=== PATIENT | male | born 1980 | race Caucasian/White ===

== ENCOUNTER 2016-10-30 20:20 | Emergency (ER) | payer OTHER ==
[~2016-10-30] VITALS: Ht 177.8 cm; Wt 106.6 kg
[2016-10-30] MEDS ORDERED: ALBUTEROL2.5 MG/3 M INH/SOL ×2 (21:34→23:28)
[2016-10-30] MEDS ORDERED: PROAIR HFA8.5 GM INH (21:34)
[2016-10-30] MEDS ORDERED: AMOX-CLAV 875-1 EACH PO (21:35)
--- NOTE | 2016-10-30 21:38 | ED DYSPNEA/ASTHMA COMPLAINT ---
History of Present Illness General Chief Complaint: General Adult Stated Complaint: DX PNEUMONIA "GETTING WORSE" Source: patient Exam Limitations: no limitations Vital Signs & Intake/Output Vital Signs & Intake/Output Vital Signs Date Time Temp Pulse Resp B/P Pulse O2 O2 Flow FiO2 Ox Delivery Rate 10/30 2142 92 10/30 2022 96.2 102 18 157/101 95 Room Air Allergies Coded Allergies: No Known Allergies (10/30/16) Reconcile Medications Albuterol Sulfate 2.5 MG/3 ML (0.083 %) VIAL.NEB 1 Vial INH/KAREN PRN WHEEZE ( Reported) Albuterol Sulfate (Proair Hfa) 90 MCG HFA.AER.AD 2 PUF INH Q4-6 PRN PRN ASTHMA (Reported) Albuterol Sulfate 2.5 MG/3 ML (0.083 %) VIAL.NEB 1 Vial INH/KAREN Q4P PRN WHEEZING Amoxicillin/Clavulanate Potass (Amox-Clav 875-125 MG Tablet) 875 MG-125 MG TABLET 1 TAB PO BID ANTIBIOTIC (Reported) Azithromycin (Zithromax) 250 MG TABLET 1 DP PO AD BRONBCHITIS 2 the first day followed by 1 for days 2-5 Prednisone 10 MG TABLET 1 TAB PO DAILY BRONCHITIS TAKE 4 TABS FOR 3 DAYS THEN TAKE 3 TABS FOR 3 DAYS THEN TAKE 2 TABS FOR 3 DAYS THEN TAKE 1 TAB FOR 3 DAYS Triage Note: PT TO [facility] WITH C/O NONPRODUCTIVE COUGH, SOB, WHEEZING x1WEEK. PT WAS DIAGNOSED WITH PNEUMONIA ON SUNDAY AND WAS ON AMOXICILLINE SINCE. SYMPTOMS GETTING WORSE. +EXPIRATORY WHEEZING ON AUSCULTATION. PT AFEBRLIE. O2SAT 95% ON RA. VSS. HX OF PNEUMONIA IN AUGUST. Triage Nurses Notes Reviewed? yes HPI: Patient was seen by a walk-in center 5 days ago and was put on amoxicillin for pneumonia. Patient states his symptoms are worsening. Positive chills but no fever. Positive cough and wheezing. Patient denies any orthopnea. There is no chest pain or chest tightness. Positive anorexia. Patient states that he feels that he needs to cough but is unable to bring anything up. The patient presents for reevaluation. Past History Travel History Traveled to [place] past 21 day No Medical History Any Pertinent Medical History? see below for history Respiratory: pneumonia Surgical History Surgical History: non-contributory Psychosocial History Tobacco Use: Never used ETOH Use: occasional use Illicit Drug Use: denies illicit drug use Family History Hx Contributory? No Review of Systems Review of Systems Constitutional: Reports: see HPI, chills. EENTM: Reports: no symptoms. Respiratory: Reports: see HPI, cough, short of breath, wheezing. Cardiovascular: Reports: no symptoms. GI: Reports: no symptoms. Genitourinary: Reports: no symptoms. Musculoskeletal: Reports: no symptoms. Skin: Reports: no symptoms. Neurological/Psychological: Reports: no symptoms. Hematologic/Endocrine: Reports: no symptoms. Immunologic/Allergic: Reports: no symptoms. All Other Systems: Reviewed and Negative Physical Exam Physical Exam General Appearance: well developed/nourished, alert, awake, mild distress Head: atraumatic, normal appearance Eyes: Bilateral: PERRL, EOMI. Ears, Nose, Throat: normal pharynx, normal ENT inspection, hearing grossly normal Neck: normal inspection, supple, full range of motion Respiratory: decreased breath sounds, rhonchi, wheezing, respiratory distress Cardiovascular: regular rate/rhythm, normal peripheral pulses Gastrointestinal: normal bowel sounds, soft, non-tender, no organomegaly Extremities: normal inspection, normal capillary refill, normal range of motion, no edema Neurologic/Psych: no motor/sensory deficits, awake, alert, oriented x 3, normal gait, normal mood/affect Skin: intact, normal color, warm/dry Lymphatic: no anterior cervical sunshine Core Measures ACS in differential dx? No Severe Sepsis Present: No Septic Shock Present: No Progress Differential Diagnosis: asthma, bronchitis, pneumonia Plan of Care: Orders Procedure Date/time Status COMPREHENSIVE METABOLIC PANEL 10/30 2137 Complete CBC WITHOUT DIFFERENTIAL 10/30 2137 Complete Laboratory Tests 10/30/162028: Anion Gap 11, Estimated GFR > 60, BUN/Creatinine Ratio 20.0, Glucose 149 H, Calcium 10.0, Total Bilirubin 1.2, AST 34, ALT 66, Alkaline Phosphatase 57, Total Protein 7.9, Albumin 4.7, Globulin 3.2, Albumin/Globulin Ratio 1.5, CBC w Diff NO MAN DIFF REQ, RBC 5.62, MCV 86.6, MCH 29.5, RDW 13.6, MPV 6.6 L, Gran % 90.3 H, Lymphocytes % 8.2 L, Monocytes % 1.2 L, Eosinophils % 0.2, Basophils % 0.1, Absolute Granulocytes 7.7 H, Absolute Lymphocytes 0.7 L, Absolute Monocytes 0.1 L, Absolute Eosinophils 0, Absolute Basophils 0, PUBS MCHC 34.1 Diagnostic Imaging: Viewed by Me: Radiology Read. Discussed w/RAD: Radiology Read. Initial ED EKG: none Comments: Patient is feeling much better after the DuoNeb. He still has expiratory wheezing but is moving much better air. Patient states that he is now able to cough up phlegm. Departure Departure Disposition: HOME OR SELF CARE Condition: Stable Clinical Impression Primary Impression: Bronchitis Referrals: VIC ROSE DO (PCP/Family) Additional Instructions: USE NEBULIZER NEEDED STOP THE AMOXIL AND START THE Z-PACK PRESCRIBED TAKE PREDNISONE PRESCRIBED RETURN IF SYMPTOMS WORSEN OR FOR ANY CONCERNS Departure Forms: Customer Survey General Discharge Information Prescriptions: Current Visit Scripts Azithromycin (Zithromax) 1 DP PO AD #6 TAB 2 the first day followed by 1 for days 2-5 Prednisone 1 TAB PO DAILY #30 TAB TAKE 4 TABS FOR 3 DAYS THEN TAKE 3 TABS FOR 3 DAYS THEN TAKE 2 TABS FOR 3 DAYS THEN TAKE 1 TAB FOR 3 DAYS Albuterol Sulfate 1 Vial INH/KAREN Q4P PRN WHEEZING #50 Vial Critical Care Note Critical Care Note Critical Care Time: non-applicable
--- NOTE | 2016-10-30 22:27 | RADIOLOGY REPORT ---
EXAMINATION: XR CHEST, 2 VIEWS CLINICAL INFORMATION: Cough. Shortness of breath. History of pneumonia. COMPARISON: 09/11/2016 TECHNIQUE: PA and lateral views of the chest were obtained. FINDINGS: Lungs are clear. No consolidation, pneumothorax, or pleural effusion. Cardiac and mediastinal contours are normal. Pulmonary vasculature is unremarkable. Trachea is midline. Osseous structures are unremarkable. IMPRESSION: Normal chest radiographs.
[2016-10-30 22:36] LABS: ABSOLUTE BASOPHIL COUNT 0 /CUMM (0.0-0.2); ABSOLUTE EOSINOPHIL COUNT 0 /CUMM (0.0-0.7); ABSOLUTE GRANULOCYTE CT 7.7 /CUMM (1.4-6.5); ABSOLUTE LYMPH COUNT 0.7 /CUMM (1.2-3.4); ABSOLUTE MONOCYTE COUNT 0.1 /CUMM (0.10-0.60); BASOPHIL % 0.1 % (0.0-2.0); EOSINOPHIL % 0.2 % (0-5); HEMATOCRIT 48.7 % (42-52); MEAN CORPUSCULAR HGB 29.5 PG (27.0-31.0); MEAN CORPUSCULAR HGB CONC 34.1 G/DL (33.0-37.0); MEAN CORPUSCULAR VOLUME 86.6 FL (80.0-94.0); MEAN PLATELET VOLUME 6.6 FL (7.4-10.4); PLATELET COUNT 275 /CUMM (130-400); RBC DISTRIBUTION WIDTH 13.6 % (11.5-14.5); RED BLOOD CELL CT 5.62 /CUMM (4.70-6.10); WHITE BLOOD CELL COUNT 8.5 /CUMM (4.8-10.8)
[2016-10-30 22:39] LABS: GRANULOCYTE % 90.3 % (42.2-75.2)
[2016-10-30] MEDS ORDERED: ZITHROMAX250 M2 PO (23:28)
[2016-10-30] MEDS ORDERED: PREDNISONE10 M2 PO (23:28)
[2016-10-30 23:44] VITALS: BP 148/89
== END 2016-10-30 23:45 ==
LOC: ERH 20:20
PROVIDERS: Emergency Medicine
DX: J40 Bronchitis, not specified as acute or chronic (principal)
CPT/HCPCS: 1263